=== PATIENT | male | born 1975 | race Caucasian/White ===

== ENCOUNTER 2024-04-14 06:35 | Emergency (ER) | payer BC, SELFPAY ==
[2024-04-14 06:51] VITALS: BP 147/101; PULSE 78; RESP 16; TEMP 36.7; O2SAT 99; BMI 24.5
[2024-04-14 07:01] VITALS: BP 129/87; PULSE 61; O2SAT 99
--- NOTE | 2024-04-14 07:15 | PC.NURSE ---
introduced self to pt. no questions or concerns voiced at this time. denies need for blanket. call light within reach
--- NOTE | 2024-04-14 07:15 | [facility].EDGENADL ---
Discharge Plan Disposition Patient Disposition: Home, Self-Care Condition: Good Prescriptions Prescriptions: New chlorhexidine gluconate [Antiseptic Skin Clnsr(chlorhe)] 4 % liquid 1 applic topical DAILY 3 Days Qty: 473 0RF sulfamethoxazole-trimethoprim [Bactrim DS] 800-160 mg tablet 1 tab PO BID 10 Days Qty: 20 0RF cephalexin 500 mg capsule 500 mg PO TID 10 Days Qty: 30 0RF Referrals Follow up/Referrals: Anne Kent MD [Referring] - See instructions Provider,MD Fabiano [Primary Care Provider] - See instructions Jayden Farias MD [Staff Physician] - See instructions Activity Restrictions/Add. Instructions Additional Instructions/Restrictions: You were evaluated in the emergency department today. Please fiber picker your prescriptions at the pharmacy and use as prescribed. Follow-up closely with dermatology as well as with primary care. Return to the emergency department for new or worsening symptoms. Clinical Impressions Clinical Impression: Axillary hidradenitis suppurativa Instructions Patient Instructions: Jinaradenimarlee Suppurativa, DI for Skin Abscess Discharge ED Provider: Amanda Quiroz General Adult HPI General Chief complaint: Skin/Abscess/Foreign Body Stated complaint: painful lump under both armpits Time Seen by Provider: 04/14/24 07:08 Mode of Arrival: Family Vehicle Source of Information: Patient Limitations: No Limitations Description of Symptoms (Recalled from ER Triage Doc. by RN): 48 yo male presents with bilateral axillary abscesses/ingrown hairs. afebrile. 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 denies meds/significant med history. a&ox4. VSS. History of Present Illness HPI narrative: This patient is a 48-year-old male who denies significant past medical history presenting to the emergency department for evaluation with concern for abscesses/ingrown hairs in both of his armpits. He states that 1 started about a week ago and that this started 2 days prior to arrival. No fevers, chills, nausea, vomiting, or systemic symptoms. He denies experiencing anything like this in the past. No recent changes that he can identify as a trigger. Related Data Previous Rx's Medication Instructions Recorded cephalexin 500 mg capsule 500 mg PO TID 10 days #30 caps 04/14/24 chlorhexidine gluconate 4 % 1 applic topical DAILY 3 days #473 04/14/24 topical liquid (Antiseptic Skin mL Cleanser (chlorhexidine)) sulfamethoxazole 800 1 tab PO BID 10 days #20 tabs 04/14/24 mg-trimethoprim 160 mg tablet (Bactrim DS) Allergies Allergy/AdvReac Type Severity Reaction Status Date / Time No Known Allergies Allergy Verified 04/14/24 07:10 [facility] Disclaimer: The information contained in this section may have been updated after the patient was seen, as this information can be updated by other users. Social History Smoking Status: Unknown if ever smoked alcohol intake: never current occupational status: employed Travel in the last 8 weeks: None ROS Obtained: Yes All systems reviewed & no additional complaints except as documented Physical Exam General General appearance: alert and in no apparent distress Head Head exam: atraumatic and normocephalic Eye Eye exam: Present normal appearance, PERRL and EOMI ENT ENT exam: Present normal exam, normal oropharynx, mucous membranes moist and normal external ear exam Neck Neck exam: Present normal inspection, full ROM and trachea midline; Absent tenderness Chest Chest inspection: Present normal inspection and symmetric chest wall rise; Absent tenderness Respiratory Respiratory exam: Present normal lung sounds bilaterally; Absent respiratory distress, wheezes, stridor or accessory muscle use Cardiovascular Cardiovascular exam: Present regular rate and normal rhythm Abdominal Exam Abdominal exam: Present soft; Absent distention, tenderness or guarding Extremities Exam Extremities exam: Present normal inspection, full ROM and normal capillary refill; Absent tenderness or edema Back Exam Back exam: Present normal inspection and full ROM; Absent tenderness Neurological Exam Neurological exam: Present alert, oriented X3, CN II-XII intact and normal gait; Absent motor sensory deficit Psychiatric Psychiatric exam: Present normal affect and normal mood Skin Skin exam: Present warm, dry and other (Palpable areas of induration in bilateral axilla with no palpable fluctuance concerning for abscess or amenable for drainage. Mild erythema and warmth but no purulence. No red streaking away from the area.) Medical Decision Making Medical Records Medical records reviewed: Yes I reviewed the patient's medical records. Joel Inquiry Pt receiving controlled substance: No Vital Signs: 04/14/24 06:51 Temperature 98.1 F Temperature Source Oral Pulse Rate [Right Brachial] 78 Respiratory Rate 16 Blood Pressure [Right Arm] 147/101 H Blood Pressure Mean [Right Arm] 116 Blood Pressure Source [Right Arm] Automatic Cuff Blood Pressure Position [Right Arm] Sitting 02 Sat by Pulse Oximetry 99 Oxygen Delivery Method Room Air Lab Data Lab results reviewed: Yes I reviewed the patient's lab results. Medical Decision Narrative: In summary, this patient is a 48-year-old male presenting to the Emergency Department for evaluation of lumps in his bilateral armpits. Differential diagnoses considered include but are not limited to abscess, cellulitis, folliculitis, hidradenitis suppurativa. Ruling out the most morbid conditions drove assessment. On exam, the patient is well-appearing with normal vital signs and no systemic symptoms. He has bilateral areas of induration in his axilla concerning for potential hidradenitis suppurativa, though he does not have a history of this. No abscesses amenable for drainage on clinical exam. At this time, I feel it is appropriate for discharge home. He was given oral Bactrim and Keflex to treat potential underlying infection as well as chlorhexidine soap to cleanse the area. He was given instructions for close outpatient follow-up with both primary care as well as dermatology. He was given strict return precautions and was discharged after all questions were answered. Critical Care Critical Care Time Critical Care Time: No
[2024-04-14 07:27] VITALS: BP 118/80; PULSE 64; RESP 18; TEMP 36.7; O2SAT 98
== END 2024-04-14 07:27 | disposition home or self-care (01) ==
LOC: ER 07:33
PROVIDERS: Emergency Provider Emergency Medicine
DX: L73.2 Hidradenitis suppurativa (principal)
CPT/HCPCS: 99283